=== PATIENT | male | born 1955 | race African-American/Black ===

== ENCOUNTER 2016-09-30 07:34 | Emergency (ER) | payer SELFPAY ==
[2016-09-30] MEDS ORDERED: Dexamethasone 4 mg/ml Vial ONE (07:51)
[2016-09-30] MEDS ORDERED: AMOXicillin 250 MG CAP ONE (07:51)
== END 2016-09-30 08:00 | disposition home or self-care (01) ==
LOC: BURERS 07:34
DX: J01.90 Acute sinusitis, unspecified (principal); I10 Essential (primary) hypertension; M25.512 Pain in left shoulder
CPT/HCPCS: 99283; J1100

== ENCOUNTER 2016-12-01 08:57 | Emergency (ER) | payer SELFPAY ==
[2016-12-01] MEDS ORDERED: predniSONE 20 MG TAB ONE (09:16)
[2016-12-01] MEDS ORDERED: HYDROcodone/Acetaminophen 5/325 mg Tablet ONE (09:17)
== END 2016-12-01 09:50 | disposition home or self-care (01) ==
LOC: BURERS 08:57
DX: M54.16 Radiculopathy, lumbar region (principal); I10 Essential (primary) hypertension; I25.10 Atherosclerotic heart disease of native coronary artery without angina pectoris
CPT/HCPCS: 99283; J7506

== ENCOUNTER 2016-12-04 10:18 | Emergency (ER) | payer SELFPAY ==
[2016-12-04] MEDS ORDERED: cefTRIAXone\\ROCEPHIN 2 GM VIAL ONE (11:03)
[2016-12-04] MEDS ORDERED: Sodium Chloride 0.9% 0 ML ONE (11:04)
== END 2016-12-04 11:40 | disposition left against medical advice (07) ==
LOC: BURERS 10:18
DX: Z53.21 Procedure and treatment not carried out due to patient leaving prior to being seen by health care provider (principal)
CPT/HCPCS: J0696; J7050

== ENCOUNTER 2017-12-18 17:59 | Emergency (ER) | payer SELFPAY ==
[2017-12-18 18:58] LABS: #Basophils 0.1 thou/uL (0.0-0.2); #Eosinphils 0.3 thou/uL (0.0-0.7); #Monocytes 0.9 thou/uL (0.11-0.59); #Neutrophils 4.1 thou/uL (1.40-6.50); %Eosinophils 3.9 % (0.0-10.0); %Lymphocytes 35.5 % (21.0-51.0); %Monocytes 10.3 % (0.0-10.0); %Neutrophils 49.4 % (42.0-75.0); Hemoglobin 14.2 g/dL (14.0-18.0); Mean Corpuscular HGB CONC 31.9 g/dL (32.0-36.0); Mean Corpuscular Hemoglobin 29.2 pg (27.0-31.0); Mean Corpuscular Volume 91.5 fL (78.0-98.0); Mean Platelet Volume 9.9 fL (7.4-10.4); Platelet Count 217 thou/uL (130-400); RBC Distribution Width 13.6 % (11.5-14.5); Red Blood Cell (RBC) Count 4.86 mill/uL (4.70-6.10); White Blood Cell (WBC) Count 8.3 thou/uL (4.8-10.8)
[2017-12-18 19:14] LABS: ALT (SGPT) 32 U/L (8-55); AST (SGOT) 24 U/L (5-34); Albumin 4.4 g/dL (3.4-4.8); Alkaline Phosphatase 66 U/L (40-150); Anion Gap 14 mmol/L (10-20); BUN (Urea Nitrogen) 14 mg/dL (8.4-25.7); Bilirubin, Total 0.5 mg/dL (0.2-1.2); Calc. Creatinine Clearance 0 mL/min (70-130); Calcium 9.9 mg/dL (7.8-10.44); Carbon Dioxide 26 mmol/L (23-31); Chloride 104 mmol/L (98-107); Estimated GFR-MDRD 74; Globulin 3.5 g/dL (2.4-3.5); Glucose 145 mg/dL (80-115); Potassium 3.6 mmol/L (3.5-5.1); Protein, Total 7.9 g/dL (5.8-8.1); Sodium 140 mmol/L (136-145); Uric Acid 8.2 mg/dL (3.5-7.2)
[2017-12-18] MEDS ORDERED: HYDROcodone/Acetaminophen 10/325 mg Tablet ONE (20:00)
[2017-12-18] MEDS ORDERED: Ibuprofen 800 MG TAB ONE (20:48)
--- NOTE | 2017-12-18 20:54 | RAD ---
RIGHT HAND THREE VIEWS 12/18/17 HISTORY: Pain at the base of the second metacarpal. COMPARISON: None. FINDINGS: No fracture. No cortical irregularity. No periosteal reaction. Joint spaces appear to be preserved. Mild dorsal soft tissue swelling. IMPRESSION: No fracture. Mild dorsal soft tissue swelling. POS: [facility]
--- NOTE | 2017-12-19 07:39 | CT ---
CT RIGHT HAND WITHOUT CONTRAST: 12/18/17 HISTORY: Severe pain. pain is reported to be in the base of the second metacarpal. COMPARISON: None. FINDINGS: Questionable mild fluid along the tendon sheath in the palmar aspect of the hand. Possibility of teno synovitis cannot be completely excluded. Soft tissues of the hand and musculature appear to be grossl y unremarkable. There is no significant erosive or destructive changes of the joint spaces. No evidence of fracture, cortical irregularity or periosteal reaction. IMPRESSION: 1. No definite fracture. 2. Questionable small amount of fluid along the tendon sheath of the right hand, at the level of the carpal bones. Possibility of a small amount of tenosynovitis cannot be excluded. POS: [facility]
== END 2017-12-18 21:00 | disposition home or self-care (01) ==
LOC: BURERS 17:59
DX: M65.9 Synovitis and tenosynovitis, unspecified (principal); I25.10 Atherosclerotic heart disease of native coronary artery without angina pectoris; I10 Essential (primary) hypertension; Z79.899 Other long term (current) drug therapy
CPT/HCPCS: 80053; 84550; 85025; 85652

== ENCOUNTER 2020-04-25 14:44 | Outpatient (CLI) | payer MEDICARE | END 2020-04-25 14:45 | disposition home or self-care (01) | LOC: BURRAD 14:44 | PROVIDERS: ATTEND Physician Assistant | DX: M25.511 Pain in right shoulder (principal); S82.001 Unspecified fracture of right patella ==